=== PATIENT | male | born 2005 | race Caucasian/White ===

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

== ENCOUNTER 2023-04-18 08:04 | Emergency (ER) | payer OTHER, SELFPAY ==
[2023-04-18 08:19] VITALS: BP 135/70; PULSE 95; RESP 18; TEMP 36.5; O2SAT 98
--- NOTE | 2023-04-18 08:35 | ED.URI ---
HPI - URI/Sore Throat General Chief Complaint: Upper Respiratory Infection Stated Complaint: bilateral ear pain,sorethroat Time Seen by Provider: 04/18/23 08:25 Source: patient and RN notes reviewed Mode of arrival: ambulatory Limitations: no limitations History of Present Illness HPI Narrative: Presents today with a 3 day history of sore throat that is worse with swallowing, nasal congestion, bilateral ear pain, and headache. Currently rates pain 5/10 and has been taking ibuprofen with mild relief. 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 Related Data Home Medications Medication Instructions Recorded Confirmed No Home Medications 04/18/23 04/18/23 Allergies Allergy/AdvReac Type Severity Reaction Status Date / Time unknown eye drop Allergy Unknown Uncoded 07/01/22 07:36 Review of Systems Review of Systems: CONSTITUTIONAL: Denies body aches, fever, chills, or sweats. EYES: Denies visual changes, redness, or discharge. ENT: Denies rhinorrhea.+ congestion, sore throat, ear pain CARDIOVASCULAR: Denies chest pain, palpitations, or edema. RESPIRATORY: Denies cough or dyspnea. GASTROINTESTINAL: Denies abdominal pain, nausea, vomiting, or diarrhea. GENITOURINARY: Denies dysuria or hematuria. SKIN: Denies rash, itching, or wounds. MUSCULOSKELETAL: Denies back pain, joint pain, or myalgia. NEUROLOGIC: Denies numbness, tingling, or weakness.+ headache PSYCH: Denies depression or anxiety. [facility] Past Medical History Medical History ADHD Anxiety Depression Hx of migraines Social History Social History Social History: Caffeine-daily soda Smoking status: Never smoker Tobacco type: e-cigarettes/vaping Additional smoking assessment comments: VAPING 3 MONTHS Alcohol intake: never Substance use: never Living arrangements: with family Gender identity (if verbalized by the patient): Male Sexual Orientation (if Verbalized by the Patient): Straight or Heterosexual Comments At time of signature, I have reviewed and agree with nursing past medical, surgical, social and family history unless otherwise noted. Please see nursing chart for further information. There is no relevant family history pertinent to the presenting complaint Exam Narrative: GENERAL: Well-appearing, well-nourished, and in no acute distress. HEAD: Normocephalic, atraumatic. EYES: EOMI. No redness or drainage. Conjunctivae normal. ENT: Mucous membranes pink and moist. Nares congested. No rhinorrhea. TMs normal bilaterally. Throat erythematous without edema or exudate. Small amount of postnasal drainage noted. Uvula midline. NECK: Normal AROM. Supple. No lymphadenopathy. CHEST: No respiratory distress. Clear to auscultation. HEART: Regular rate and rhythm. No murmur appreciated. EXTREMITIES: Normal range of motion. No edema. SKIN: Warm, dry, no rash. Capillary refill normal. Normal skin turgor. NEURO: No focal deficits. Alert and oriented x3. Gait steady. PSYCH: Normal affect. No signs of depression or anxiety. Course Course Level of Care: Express Care Visit Vital Signs Vital signs: Vital Signs Temperature 97.7 F 04/18/23 08:19 Pulse Rate 95 04/18/23 08:19 Respiratory Rate 18 04/18/23 08:19 Blood Pressure 135/70 04/18/23 08:19 Pulse Oximetry 98 04/18/23 08:19 Oxygen Delivery Room Air 04/18/23 08:19 Temperature 97.7 F 04/18/23 08:19 Pulse Rate 95 04/18/23 08:19 Respiratory Rate 18 04/18/23 08:19 Blood Pressure 135/70 04/18/23 08:19 Pulse Oximetry 98 04/18/23 08:19 Oxygen Delivery Room Air 04/18/23 08:19 Reviewed. Pt has been instructed to follow up with his PCP regarding his elevated blood pressure today. MDM - URI/Sore Throat MDM Narrative Medical decision making narrative: Rapid strep negative. Culture pend
== END 2023-04-18 08:48 | disposition home or self-care (01) ==
PROVIDERS: Emergency Provider Nurse Practitioner
DX: J06.9 Acute upper respiratory infection, unspecified (principal); F17.290 Nicotine dependence, other tobacco product, uncomplicated
CPT/HCPCS: 87081; 87880; 99213; G0463

== ENCOUNTER 2023-07-28 21:29 | Emergency (ER) | payer OTHER, SELFPAY | END 2023-07-28 21:30 | disposition left against medical advice (07) | DX: Z53.21 Procedure and treatment not carried out due to patient leaving prior to being seen by health care provider (principal) | CPT/HCPCS: 99199 ==

== ENCOUNTER 2024-08-23 14:29 | Outpatient (CLI) | payer OTHER, MEDICAID, SELFPAY ==
--- NOTE | 2024-08-23 14:36 | ECG_ITS ---
Test Date: 2024-08-23 14:47:10 Measurements Intervals [place] Rate: 72 P: 21 HI: 123 QRS: 89 QRSD: 92 T: 45 QT: 384 QTc: 420 Interpretive Statements SINUS RHYTHM INCOMPLETE RIGHT BUNDLE BRANCH BLOCK No previous ECG available for comparison Electronically Signed On 08-24-2024 09:37:14 CDT by Annamaria Dewitt M.D.
--- NOTE | 2024-08-26 14:29 | WPDHOLTEREM ---
Holter/Event Monitor Holter/Event Monitor Date of procedure: 08/23/24 Holter/Event Procedure: 24 Hr Holter Monitor Indications: Palpitations Conclusion: 1. 24 hour holter monitor on 08/23/24. 2. Underlying rhythm is sinus rhythm. HR range 30-145 bpm; average HR 74 bpm. HR at 30 bpm was at 03:56. HR at 145 bpm was at 22:19. 3. There are 33 premature supraventricular complexes and 7 supraventricular couplets. No supraventricular tachycardia. 4. There is 1 premature ventricular complex. No ventricular tachycardia. 5. No sinoatrial or atrioventricular blocks. The longest pause is 2.1 seconds at 04:32. 6. Patient reports symptoms of dizziness, lightheadedness, chest pain, sob which demonstrate sinus rhythm, HR range 59-103 bpm.
== END 2024-08-23 14:30 | disposition home or self-care (01) ==
PROVIDERS: PCP Nurse Practitioner Family; Visit Provider Nurse Practitioner Family
DX: I45.10 Unspecified right bundle-branch block (principal)
CPT/HCPCS: 93005; 93225; 93226

== ENCOUNTER 2025-02-09 09:27 | Emergency (ER) | payer OTHER, SELFPAY ==
--- NOTE | 2025-02-09 09:37 | ED.URI ---
HPI - URI/Sore Throat General Chief Complaint: Upper Respiratory Infection Stated Complaint: sore throat Time Seen by Provider: 02/09/25 09:32 Source: patient Mode of arrival: ambulatory Limitations: no limitations History of Present Illness HPI Narrative: Miguel is a 19-year-old male patient presenting to the clinic today with complaints a sore throat x2 days. He reports he was at work and the nurse looked is throat told him he needed to come in and be evaluated. He denies any fevers, chills, body aches, or any other URI symptoms. Related Data Allergies Allergy/AdvReac Type Severity Reaction Status Date / Time Chlorhexidine Allergy Mild hives Uncoded 09/30/24 13:03 unknown eye drop Allergy Unknown Uncoded 09/30/24 13:03 Review of Systems Review of Systems: Pertinent positives per HPI. Patient denies any fever, chills, rash, headache, visual changes, dizziness, cough, shortness of breath, chest pain, palpitations, nausea, vomiting, diarrhea, constipation, abdominal pain, or any urinary issues. [facility] Past Medical History Medical History Sleep disturbance, unspecified Hypersomnia Chest pain Migraines Asthma Post-operative pain Hx of migraines ADHD Depression Anxiety Nasal obstruction Hypertrophy of both inferior nasal turbinates Nasal septal deviation Surgical History Surgical History H/O nasal septoplasty 2021 H/O eye surgery 2004 & 2006 Family History Family History Father Alcoholism Mother Alcoholism Diabetes mellitus Depression Sibling Depression Grandparent Heart disease Grandparent Carcinoma of colon Social History Social History Social History: Caffeine-daily soda Smoking status: Never smoker Tobacco type: e-cigarettes/vaping Additional smoking assessment comments: VAPING 3 MONTHS Alcohol intake: never Substance use: never Living arrangements: with family Gender identity (if verbalized by the patient): Male Sexual Orientation (if Verbalized by the Patient): Straight or Heterosexual Comments At the time of my signature, I reviewed and agree with the nursing past medical, surgical, social, and family history. There is no relevant family history pertinent to the patient complaint. Exam Narrative: General: Well-developed, well nourished, in no apparent distress Head: Normocephalic, atraumatic Eyes: Pupils equally round and reactive to light bilaterally, EOM intact, sclera and conjunctive clear, no discharge, lids normal Ears: TMs intact and clear, ear canals clear, no drainage, grossly hearing normal. Nose: Nares patent, no discharge, no inflammation, no sinus tenderness. Mouth: Oral pharynx red without lesions or masses, good dentition, MMM. Neck: Supple, trachea midline, no enlargement of anterior or posterior cervical nodes, no thyroid masses or goiter palpable. Cardio: Regular rate and rhythm, s1 and s2 normal, no murmur appreciated. Resp: Clear to auscultation bilaterally, no rhonchi, rales, wheezing or rubs Course Course Emergency Course: Portions of this record may have been created with voice recognition software. Level of Care: Express Care Visit Vital Signs Vital signs: Vital Signs Temperature 36.9 C 02/09/25 09:39 Pulse Rate 92 02/09/25 09:39 Respiratory Rate 18 02/09/25 09:39 Blood Pressure 117/75 02/09/25 09:39 Pulse Oximetry 99 02/09/25 09:39 Temperature 36.9 C 02/09/25 09:39 Pulse Rate 92 02/09/25 09:39 Respiratory Rate 18 02/09/25 09:39 Blood Pressure 117/75 02/09/25 09:39 Pulse Oximetry 99 02/09/25 09:39 Vital signs reviewed MDM - URI/Sore Throat MDM Narrative Medical decision making narrative: At the time of visit patient is resting comfortably on the exam table. Patient appears to be nontoxic. Labs: Strep test was performed and was negative in the clinic today. We will send strep for culture Plan: I suspect patient has pharyngitis. Supportive measures were discussed with the patient and they voiced understanding discharge instructions and agrees to treatment plan. Return precautions reviewed Differential Diagnosis Differential diagnosis: Likely upper respiratory infection, otitis media, sinusitis, viral infection, bronchitis, influenza, pharyngitis and other (COVID) Discharge Plan Discharge Clinical Impression: Pharyngitis Qualifiers: Pharyngitis/tonsillitis etiology: unspecified etiology Qualified Code(s): J02.9 - Acute pharyngitis, unspecified Patient Disposition: Home, Self-Care Condition: Stable Instructions: Antibiotic Form, Pharyngitis (ED) Additional Instructions: Strep test was negative in the clinic today. We will send strep for culture. Increase fluids and stay well hydrated Tylenol/motrin for pain/fever Flonase and OTC antihistamines as directed Vicks vapor rub to open sinuses Sinus rinses for congestion Cepacol spray, cough drops, throat lozenges, warm tea with honey/lemon, gargle salt water to soothe throat BRAT diet for diarrhea Clear liquids x 24 hours then advance as tolerated for nausea/vomiting Go to the ED if you develop a worsening in your condition- high fever not controlled by Tylenol or Motrin, dehydration, weakness, lethargy, shortness of breath, or chest pain. Follow up with your PCP in 3-5 days if symptoms persist. Patient Language: Slovak Prescriptions: No Action rizatriptan 5 mg tablet See Rx Instructions PO .COMPLEX Qty: 12 5RF Rx Instructions: take 1 tablet at onset of headache; if no relief, may repeat 1 tablet after at least 2 hrs PO metoprolol succinate 25 mg tablet extended release 24 hr 12.5 mg PO DAILY Qty: 15 5RF Follow-up/Referrals: Remy Rivero MD [Primary Care Provider] - Stand Alone Forms: Work/School Release IP Time of Disposition: 09:52 Quality NIHSS Nursing Documentation ED NIHSS nursing documentation: reviewed/agree
[2025-02-09 09:39] VITALS: BP 117/75; PULSE 92; RESP 18; TEMP 36.9; O2SAT 99
--- OUTSIDE RECORDS SUMMARY | 2025-02-09 09:50 | XMS_ITS | Clinical Summary ---
Author Organization [facility] [employer] Address [address] [place] [address] Care Team Providers Care Borderer Name Role Phone Nancy Hurst MD Primary Care Provider [phone] Source Comments [facility],non-owned Affiliates and Associated Physician Practices is amultiple site organization consisting of ambulatory clinics and hospital sitesin [place], [place], [place] and [place]. This disclosure is being madepursuant to the Care Everywhere program and may not contain all information available regarding this patient. Last updated 18.[facility] Allergies Active Allergy Reactions Criticality Noted Date Comments Atropine Fever,Skin Reactions 12/23/2010 Hives, fever Medications * Be aware that medications may not be up to date on this document. Alwaysverify current medications with the patient. Medication Sig Dispensed Refills Start Date End Date Status amoxicillin-clavulana te (Augmentin) 875-125 MG tabletIndications:Acu te non-recurrent maxillary sinusitis Take 1 (one) tablet by mouth 2 times daily with morning and evening meal 20 tablet 10/14/2022 Active citalopram (CeleXA) 20 MG tablet Take 1 (one) tablet by mouth once daily 30 tablet 11 10/14/2022 Active Active Problems Problem Noted Date Diagnosed Date Chronic nonintractable headache 05/20/2019 Anxiety and depression 08/20/2017 Resolved Problems Problem Noted Date Diagnosed Date Resolved Date Asthma, intermittent 10/13/2013 020 Constipation 06/29/2012 09/06/2015 Overview (08/09/2015): Immunizations Name Administration Dates Next Due Covid Ning primary monoval ent 12+ yr 0.3mL Purple cap 01/29/2021,01/08/2021 DTaP VACCINE IM (6wk-6yrs) 06/22/2008,,04/22/2004,02/18,2003 HEP A PEDS 2 DOSE 04/27/2007,12/15/2005 HEP B VACCINE, PED/ADOL 04/22/2004,02/18,2003,10/17 HIB BOOSTER 05/06/2005, 4,02/19/2004,12/19 Human Papilloma Virus Nineva lent Vaccine 08/08/2020,07/21/2018 INFLUENZA VACCINE 12/15/2005 INFLUENZA VACCINE, QUADR. (F LUZONE; FLULAVAL; FLUARIX; AFLURIA QUADRIVALENT; 6MO+), 0.5 ML (IIV4) 08/30/2021,08/08/2020,07/21/2018 MENINGOCOCCAL ACWY (MCV4P) VAC IM 08/08/2020, MMR 06/22/2008,10/21/2004 PNEUMOCOCCAL CONJ, PEDS 10/21/2004,04/22,02/19/2004,12/19 POLIO IPV 06/22/2008, 4,02/19/2004,12/19 PPD 10/21/2004 TDAP (7yrs+) 03/06/2014 VARICELLA 06/22/2008,05/06/2005 Family History Medical History Relation Name Comments Atrial Fibrillation Maternal Grandmother Relation Name Status Comments Maternal Grandmother Social History Tobacco Use Types Packs/Day Years Used Date Smoking Tobacco: Passive Smo ke Exposure - Never Smoker Smokeless Tobacco: Never Alcohol Use Standard Drinks/Week Comments No 0 (1 standard drink = 0.6 oz pur e alcohol) PHQ-2 Answer Date Recorded PHQ2 TOTAL SCORE 0 08/30/2021 Sex and Gender Information Value Date Recorded Sex Assigned at Not on file Gender Identity Not on file Sexual Orientation Not on file Last Filed Vital Signs Vital Sign Reading Time Taken Comments Blood Pressure 112/73 03/26/2022 12:46 PM CDT Pulse 68 03/26/2022 12:46 PM CDT Temperature 36.6 C (97.9 F) 10/14/2022 10:58 AM OPERATIONS LIAISON Respiratory Rate 20 07/05/2021 11:09 AM CDT Oxygen Saturation 98% 07/05/2021 11:09 AM CDT Inhaled Oxygen Concentration - - Weight 72.8 kg (160 lb 6.4 oz) 10/14/2022 10:58 AM OPERATIONS LIAISON Height 172.1 cm (5' 7.75 ) 08/30/2021 1:31 PM CD T Body Mass Index - - Plan of Treatment Health Maintenance Due Date Last Done Comments HIV SCREENING 2018 MENINGOCOCCAL (Group B) VACC INE SHARED DECISION-MAKING (1 of 2 - Standard) 2019 HEPATITIS C SCREENING 10/12/2021 DTAP/TDAP/TD VACCINES (7 - T d or Tdap) 03/06/2024 03/06/2014, 06/22/2008, 05/06/2005, Additional history exists COVID-19 VACCINE (2023-2 5 season) 2024 01/29/2021, 01/08/2021 DEPRESSION SCREENING 11/09/2024 INFLUENZA VACCINE (Season Ended) 2025 08/30/2021, 08/08/2020, 07/21/2018, Additional history exists ZOSTER VACCINE (1 of 2) 2053 HEPATITIS B VACCINE Completed 04/22/2004, 02/19/2004, 2003, Additional history exists PNEUMOCOCCAL VACCINE Completed 10/21/2004, 04/22/2004, 02/19/2004, Additional history exists HIB VACCINE Completed 05/06/2005, 04/09, 02/19/2004, Additional history exists HPV VACCINE Completed 08/08/2020, 07/21/2018 MENINGOCOCCAL GROUPS A/C/Y/W VACCINE Completed 08/08/2020, 05/07/2015 Goals Goal Patient Goal Type Associated Problems Recent Progress Patient-Stated? Author [facility] Lifestyle: Use safety retraint in car Lifestyle On track( 021 10:48 AM CDT) Diane Mathews, RN Take recommended medication(s) Lifestyle On track( 021 10:50 AM CDT) Perla Moon, HOSPICE COMMUNITY LIAISON-PROFESSOR OF PHYSICAL EDUCATION Care Teams Borderer Relationship Specialty Start Date End Date Nancy Hurst MD PCP - General Pediatrics 12/29/17
--- OUTSIDE RECORDS SUMMARY | 2025-02-09 09:50 | XMS_ITS | Clinical Summary ---
Author Organization [facility] Address [address] [place] [id number] Care Team Providers Care Kiln Pusher Name Role Phone None, Provider MD Primary Care Provider Unavaila ble Allergies Active Allergy Reactions Criticality Noted Date Comments Atropine Rash,Hives Low 12/23/2010 Hives, fever Medications No known medications Social History Tobacco Use Types Packs/Day Years Used Date Smoking Tobacco: Never Smokeless Tobacco: Never Tobacco Cessation:Counseling Given: Not Answered Sex and Gender Information Value Date Recorded Sex Assigned at Not on file Legal Sex Male 5:30 PM CDT Gender Identity Not on file Sexual Orientation Not on file Last Filed Vital Signs Vital Sign Reading Time Taken Comments Blood Pressure 118/54 08/05/2023 2:33 PM CDT Pulse 65 08/05/2023 2:33 PM CDT Temperature 36.7 C (98 F) 08/05/2023 2:33 PM CDT Respiratory Rate 20 08/05/2023 2:33 PM CDT Oxygen Saturation 96% 08/05/2023 2:33 PM CDT Inhaled Oxygen Concentration - - Weight 70.3 kg (155 lb) 08/05/2023 2:33 PM CDT Height 175.3 cm (5' 9 ) 08/05/2023 2:33 PM CDT Body Mass Index 22.89 08/05/2023 2:33 PM CDT Plan of Treatment Health Maintenance Due Date Last Done Comments Annual Physical 2006 Meningococcal B Vaccine (1 of 2 - Standard) 2019 Hepatitis C 2021 DTaP, Tdap and Td Vaccines (7 - Td or Tdap) 03/06/2024 03/06/2014, 06/22/2008, 05/06/2005, Additional history exists COVID-19 Vaccine ( season) 2024 10/01/2021, 01/29/2021, 01/08/2021 Influenza Adult (#1) 2024 08/30/2021, 08/08/2020, 07/21/2018, Additional history exists Hepatitis B Vaccines Completed 04/22/2004, 04/22/2004, 02/19/2004, Additional history exists Pneumococcal Vaccine: Pediatrics (0 to 5 Years) and At-Risk Patients (6 to 64 Years) Aged Out 10/21/2004, 02/19/2004, 2003 No longer eligible based on patient's age to complete this topic HPV Vaccines Completed 08/08/2020, 07/21/2018 Meningococcal Vaccine Completed 08/08/2020, 015 RSV Immunizations Under 20 Months Aged Out No longer eligible based on patient's age to complete this topic Insurance [employer] Care Teams Kiln Pusher Relationship Specialty Start Date End Date None, Provider, PCP - General 06/15/22
--- OUTSIDE RECORDS SUMMARY | 2025-02-09 09:50 | XMS_ITS | Encounter Summary ---
Author Organization [facility] Health Address [address] [place] [address] Care Team Providers Care Higher Level Teaching Assistant Name Role Phone Nancy Hurst MD Unavailable [phone] Nancy Hurst MD Primary Care Provider [phone] Nancy Hurst MD Primary Care Provider [phone] Nancy Hurst MD Unavailable [phone] Arun Frank MD Unavailable [phone] Nancy Hurst MD Unavailable [phone] Encounter Details Date Type Department Care Team (Late st Contact Info) Description 10/10/2012 [facility] Outpatient Visit CG DEFAULT [address] [place] [address] Unknown, Provider Social History Tobacco Use Types Packs/Day Years Used Date Smoking Tobacco: Never Assessed Sex and Gender Information Value Date Recorded Sex Assigned at Not on file Gender Identity Not on file Sexual Orientation Not on file documented as of this encounter Plan of Treatment Not on file documented as of this encounter Visit Diagnoses Not on filedocumented in this encounter Additional Health Concerns Infection Onset Date Last Indicated Resolved Time COVID-19 Under Investigation 09/13/2020 09/13/2020 09/15/2020 1:07 PM GAS CONTROLLER COVID-19 Confirmed 09/13/2020 09/13/2020 0 4:35 AM GAS CONTROLLER COVID-19 Under Investigation 10/14/2022 10/14/2022 10/14/2022 11:40 AM GAS CONTROLLER documented as of this encounter Care Teams Higher Level Teaching Assistant Relationship Specialty Start Date End Date Nancy Hurst MD PCP - Pediatrics 08/24/09 12/24/17 Nancy Hurst MD [address] [address] PCP - General 01/29/10 12/24/17 Nancy Hurst MD PCP - General Pediatrics 12/29/17 Nancy Hurst MD [address] [address] PCP - Attributed-[place] [employer] 06/09/20 01/06/21 [place] [address] [address] PCP - Attributed-[place] [employer] 01/07/21 03/08/21 Nancy Hurst MD [address] [id number] PCP - Attributed-[place] [employer] 03/09/21 06/24/21 documented as of this encounter
[2025-02-09 09:56] LABS: EDSTREPNEGPOS1 Negative (Negative)
== END 2025-02-09 09:56 | disposition home or self-care (01) ==
PROVIDERS: Emergency Provider Nurse Practitioner Family; PCP Family Medicine
DX: J02.9 Acute pharyngitis, unspecified (principal); J45.909 Unspecified asthma, uncomplicated; F90.9 Attention-deficit hyperactivity disorder, unspecified type; F17.290 Nicotine dependence, other tobacco product, uncomplicated
CPT/HCPCS: 87081; 87880; 99213; G0463

== ENCOUNTER 2025-05-25 00:16 | Emergency (ER) | payer SELFPAY ==
--- OUTSIDE RECORDS SUMMARY | 2025-05-25 00:18 | XMS_ITS | Clinical Summary ---
Author Organization [facility] Address [address] [place] [address] Care Team Providers Care Laboratory Machinist Name Role Phone None, Provider MD Primary [...] 2:33 PM CDT Height 175.3 cm (5' 9) 08/05/2023 2:33 PM CDT Body Mass Index 22.89 08/05/2023 2:33 PM CDT Plan of Treatment Health Maintenance Due Date Last Done Comments Annual Physical 2006 Meningococcal B Vaccine (1 of 2 - Standard) 2019 Hepatitis C 2021 DTaP, Tdap and Td Vaccines (7 - Td or Tdap) 03/06/2024 03/06/2014, 06/22/2008, 05/06/2005, Additional history exists COVID-19 Vaccine ( season) 2024 10/01/2021, 01/29/2021, 01/08/2021 Hepatitis B Vaccines Completed 04/22/2004, 04/22/2004, 02/19/2004, Additional history exists Pneumococcal Vaccine: Pediatrics (0 to 5 Years) and At-Risk Patients (6 to 49 Years) Aged Out 10/21/2004, 02/19/2004, 2003 No longer eligible based on patient's age to complete this topic HPV Vaccines Completed 08/08/2020, 07/21/2018 Meningococcal Vaccine Completed 08/08/2020, 015 RSV Immunizations Under 20 Months Aged Out No longer eligible based on patient's age to complete this topic Insurance [employer] Care Teams Laboratory Machinist Relationship Specialty Start Date End Date None, Provider, PCP - General 06/15/22
--- OUTSIDE RECORDS SUMMARY | 2025-05-25 00:18 | XMS_ITS | Clinical Summary ---
Author Organization [facility] [employer] Address [address] [place] [address] Care Team Providers Care Rpg Developer Name Role Phone Nancy Hurst MD Primary Care Provider [phone] Source Comments [facility],non-owned Affiliates and Associated Physician Practices is amultiple site organization consisting of ambulatory clinics and hospital sitesin [place], [place], [place] and [place]. This disclosure is being madepursuant to the Care Everywhere program and may not contain all information available regarding this patient. Last updated 18.[facility] Allergies Active Allergy Reactions Criticality Noted Date Comments Atropine Fever,Skin Reactions 12/23/2010 Hives, fever Medications * Be aware that medications may not be up to date on this document. Alwaysverify current medications with the patient. 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 Gender Identity Not on file Sexual Orientation Not on file Last Filed Vital Signs Vital Sign Reading Time Taken Comments Blood Pressure 112/73 03/26/2022 12:46 PM CDT Pulse 68 03/26/2022 12:46 PM CDT Temperature 36.6 C (97.9 F) 10/14/2022 10:58 AM AIR CARGO GROUND CREW SUPERVISOR Respiratory Rate 20 07/05/2021 11:09 AM CDT Oxygen Saturation 98% 07/05/2021 11:09 AM CDT Inhaled Oxygen Concentration - - Weight 72.8 kg (160 lb 6.4 oz) 10/14/2022 10:58 AM AIR CARGO GROUND CREW SUPERVISOR Height 172.1 cm (5' 7.75) 08/30/2021 1:31 PM CD T Body Mass Index - - Plan of Treatment Health Maintenance Due Date Last Done Comments HIV SCREENING 2018 MENINGOCOCCAL (Group B) VACC INE SHARED DECISION-MAKING (1 of 2 - Standard) 2019 HEPATITIS C SCREENING 10/12/2021 DTAP/TDAP/TD VACCINES (7 - T d or Tdap) 03/06/2024 03/06/2014, 06/22/2008, 05/06/2005, Additional history exists COVID-19 VACCINE (3 - 2023-2 5 season) 2024 01/29/2021, 01/08/2021 DEPRESSION SCREENING 11/09/2024 INFLUENZA VACCINE (#1) 2025 , 08/08/2020, 07/21/2018, Additional history exists ZOSTER VACCINE [...] safety retraint in car Lifestyle On track( 10:48 AM CDT) No Diane Bailey, RN Take recommended medication(s) Lifestyle On track( 10:50 AM CDT) No Perla Valente, [facility] Insurance [employer] * Guarantor: MIGUEL HARPER JR Account Type Relation to Patient Date of Phone Billing Address Personal/Family [address] [place] [address] Care Teams Rpg Developer Relationship Specialty Start Date End Date Nancy Hurst MD PCP - General Pediatrics 12/29/17
--- OUTSIDE RECORDS SUMMARY | 2025-05-25 00:18 | XMS_ITS | Encounter Summary ---
Author Organization [facility] Health Address [address] [place] [place] [address] Care Team Providers Care Business Analyst Intern Name Role Phone Nancy Hurst MD Unavailable [phone] Nancy Hurst MD Primary Care Provider [phone] Nancy Hurst MD Primary Care Provider [phone] Nancy Hurst MD Unavailable [phone] Arun Frank MD Unavailable [phone] Nancy Hurst MD Unavailable [phone] Encounter Details Date Type Department Care Team (Late st Contact Info) Description 10/10/2012 [facility] Outpatient Visit CG DEFAULT [address] [place] [address] Unknown, Provider Social History Tobacco Use Types Packs/Day Years Used Date Smoking Tobacco: Never Assessed Sex and Gender Information Value Date Recorded Sex Assigned at Not on file Legal Sex Male 6:45 AM MD ALLERGY IMMUNOLOGY Gender Identity Not on file Sexual Orientation Not on file documented as of this encounter Plan of Treatment Not on file documented as of this encounter Visit Diagnoses Not on filedocumented in this encounter Additional Health Concerns Infection Onset Date Last Indicated Resolved Time COVID-19 Under Investigation 09/13/2020 09/13/2020 09/15/2020 1:07 PM MD ALLERGY IMMUNOLOGY COVID-19 Confirmed 09/13/2020 09/13/2020 0 4:35 AM MD ALLERGY IMMUNOLOGY COVID-19 Under Investigation 10/14/2022 10/14/2022 10/14/2022 11:40 AM MD ALLERGY IMMUNOLOGY documented as of this encounter Care Teams Business Analyst Intern Relationship Specialty Start Date End Date Nancy Hurst MD PCP - Pediatrics 08/24/09 12/24/17 Nancy Hurst MD [address] [id number] PCP - General 01/29/10 12/24/17 Nancy Hurst MD PCP - General Pediatrics 12/29/17 Nancy Hurst MD [address] [address] PCP - Attributed-[place] [employer] 06/09/20 01/06/21 [place] [address] [address] PCP - Attributed-[place] [employer] 01/07/21 03/08/21 Nancy Hurst MD [address] [id number] PCP - Attributed-[place] [employer] 03/09/21 06/24/21 documented as of this encounter
--- OUTSIDE RECORDS SUMMARY | 2025-05-25 00:49 | XMS_ITS | Clinical Summary ---
Author Organization [facility] [employer] Address [address] [place] [address] Care Team Providers Care Learning Officer Name Role Phone Nancy Hurst MD Primary Care Provider [phone] Source Comments [facility],non-owned Affiliates and Associated Physician Practices is amultiple site organization consisting of ambulatory clinics and hospital sitesin [place], [place], [place] and [place]. This disclosure is being madepursuant to the Care Everywhere program and may not contain all information available regarding this patient. 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 Gender Identity Not on file Sexual Orientation Not on file Last Filed Vital Signs Vital Sign Reading Time Taken Comments Blood Pressure 112/73 03/26/2022 12:46 PM CDT Pulse 68 03/26/2022 12:46 PM CDT Temperature 36.6 C (97.9 F) 10/14/2022 10:58 AM SIGNAL WORKER Respiratory Rate 20 07/05/2021 11:09 AM CDT Oxygen Saturation 98% 07/05/2021 11:09 AM CDT Inhaled Oxygen Concentration - - Weight 72.8 kg (160 lb 6.4 oz) 10/14/2022 10:58 AM SIGNAL WORKER Height 172.1 cm (5' 7.75) 08/30/2021 1:31 [...] track( 10:50 AM CDT) No Perla Valente, [facility] Insurance [employer] * Guarantor: MIGUEL HARPER JR Account Type Relation to Patient Date of Phone Billing Address Personal/Family [address] [facility] [place] [address] Care Teams Learning Officer Relationship Specialty Start Date End Date Nancy Hurst MD PCP - General Pediatrics 12/29/17
--- OUTSIDE RECORDS SUMMARY | 2025-05-25 00:49 | XMS_ITS | Encounter Summary ---
Author Organization [facility] Health Address [address] [place] [address] Care Team Providers Care Carpenter Name Role Phone Nancy Hurst MD Unavailable [phone] Nancy Hurst MD Primary Care Provider [phone] Nancy Hurst MD Primary Care Provider [phone] Nancy Hurst MD Unavailable [phone] Arun Frank MD Unavailable [phone] Nancy Hurst MD Unavailable [phone] Encounter Details Date Type Department Care Team (Late st Contact Info) Description 10/10/2012 [facility] Outpatient Visit CG DEFAULT [address] [place] [address] Unknown, Provider Social History Tobacco Use Types Packs/Day Years Used Date Smoking Tobacco: Never Assessed Sex and Gender Information Value Date Recorded Sex Assigned at Not on file 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 Gender Identity Not on file Sexual Orientation Not on file documented as of this encounter Plan of Treatment Not on file documented as of this encounter Visit Diagnoses Not on filedocumented in this encounter Additional Health Concerns Infection Onset Date Last Indicated Resolved Time COVID-19 Under Investigation 09/13/2020 09/13/2020 09/15/2020 1:07 PM PRIMING MACHINE OPERATOR COVID-19 Confirmed 09/13/2020 09/13/2020 0 4:35 AM PRIMING MACHINE OPERATOR COVID-19 Under Investigation 10/14/2022 10/14/2022 10/14/2022 11:40 AM PRIMING MACHINE OPERATOR documented as of this encounter Care Teams Carpenter Relationship Specialty Start Date End Date Nancy Hurst MD PCP - Pediatrics 08/24/09 12/24/17 Nancy Hurst MD [address] [phone] PCP - General 01/29/10 12/24/17 Nancy Hurst MD PCP - General Pediatrics 12/29/17 Nancy Hurst MD [address] [address] PCP - Attributed-[place] [employer] 06/09/20 01/06/21 [place] [address] [address] PCP - Attributed-[place] [employer] 01/07/21 03/08/21 Nancy Hurst MD [address] [phone] PCP - Attributed-[place] [employer] 03/09/21 06/24/21 documented as of this encounter
--- OUTSIDE RECORDS SUMMARY | 2025-05-25 00:49 | XMS_ITS | Clinical Summary ---
Author Organization [facility] Address [address] [place] [address] Care Team Providers Care Rug Hooker Hand Name Role Phone None, Provider MD Primary [...] [employer] [employer] Care Teams Rug Hooker Hand Relationship Specialty Start Date End Date None, Provider, PCP - General 06/15/22
== END 2025-05-25 00:54 | disposition left against medical advice (07) ==
LOC: ANHED 00:48
PROVIDERS: PCP Family Medicine
DX: Z53.21 Procedure and treatment not carried out due to patient leaving prior to being seen by health care provider (principal)
CPT/HCPCS: 99199

== ENCOUNTER 2025-05-31 13:21 | Outpatient (CLI) | payer OTHER, SELFPAY ==
--- NOTE | ~2025-05-31 | CT_ITS ---
CLINICAL INDICATION: Elevated urine levels of drugs and medications COMPARISON: None. TECHNIQUE: Multiple contiguous axial images of the abdomen and pelvis were performed following the ad ministration of with 100 mL Omnipaque-350 intravenous contrast The dose-length product (DLP) was 657.82 mGy-cm. Automated exposure control and iterative reconstruction technique were employed. FINDINGS/OBSERVATIONS: Visualized lower thorax: The bilateral lung bases are clear. The heart is of normal size, without pericardial effusion. Liver: The liver demonstrates homogeneous enhancement and is not enlarged. Gallbladder and biliary system: The gallbladder is only minimally distended, and otherwise unremarkable. Pancreas: The pancreas enhances homogeneously without ductal dilatation. Spleen: The spleen enhances homogeneously and is not enlarged. Kidneys, ureters and bladder: The bilateral kidneys enhance symmetrically without hydronephrosis or renal calculi. The bilateral kidneys excrete symmetrically, without filling defect identified within the bilateral c ollecting systems or bilateral ureters. The bladder distends normally, without filling defect. Adrenal glands: Unremarkable. Gastrointestinal tract: Fecal stasis within the colon. Appendix: The appendix is not definitively visualized. However, no pericecal inflammatory change is identified suggest the presence of acute appendicitis. Vasculature: Unremarkable. Lymph nodes: No pathologically enlarged or morphologically suspicious lymph nodes within the retroperitoneum or at the root of the mesentery. Pelvic structures: The bladder is distended with intravenous contrast, as detailed above, and otherwise unremarkable. The prostate gland is not enlarged. Body wall and musculoskeletal: No significant degenerative disease within the lower thoracic or lumbosacral spine. No inguinal hernias are appreciated. IMPRESSION: Unremarkable CT urogram, as detailed above. Reviewed, dictated and finalized at location A.
--- OUTSIDE RECORDS SUMMARY | 2025-05-31 13:27 | XMS_ITS | Clinical Summary ---
Author Organization [facility] [employer] Address [address] [place] [address] Care Team Providers Care History Teacher Name Role Phone Nancy Hurst MD Primary Care Provider [phone] Source Comments [facility],non-owned Affiliates and Associated Physician Practices is amultiple site organization consisting of ambulatory clinics and hospital sitesin [place], [place], [place] and [place]. This disclosure is being madepursuant to the Care Everywhere program and may not contain all information available regarding this patient. 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 Gender Identity Not on file Sexual Orientation Not on file Last Filed Vital Signs Vital Sign Reading Time Taken Comments Blood Pressure 112/73 03/26/2022 12:46 PM CDT Pulse 68 03/26/2022 12:46 PM CDT Temperature 36.6 C (97.9 F) 10/14/2022 10:58 AM OXYGEN PLANT OPERATOR Respiratory Rate 20 07/05/2021 11:09 AM CDT Oxygen Saturation 98% 07/05/2021 11:09 AM CDT Inhaled Oxygen Concentration - - Weight 72.8 kg (160 lb 6.4 oz) 10/14/2022 10:58 AM OXYGEN PLANT OPERATOR Height 172.1 cm (5' 7.75) 08/30/2021 1:31 [...] track( 10:50 AM CDT) No Perla Valente, [facility] Insurance [employer] * Guarantor: MIGUEL HARPER JR Account Type Relation to Patient Date of Phone Billing Address Personal/Family [address] [place] [address] Care Teams History Teacher Relationship Specialty Start Date End Date Nancy Hurst MD PCP - General Pediatrics 12/29/17
--- OUTSIDE RECORDS SUMMARY | 2025-05-31 13:27 | XMS_ITS | Encounter Summary ---
Author Organization [facility] Health Address [address] [place] [place] [address] Care Team Providers Care Tribal Judge Name Role Phone Nancy Hurst MD Unavailable [phone] Nancy Hurst MD Primary Care Provider [phone] Nancy Hurst MD Primary Care Provider [phone] Nancy Hurst MD Unavailable [phone] Arun Frank MD Unavailable [phone] Nancy Hurst MD Unavailable [phone] Encounter Details Date Type Department Care Team (Late st Contact Info) Description 10/10/[address] 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 Gender Identity Not on file Sexual Orientation Not on file documented as of this encounter Plan of Treatment Not on file documented as of this encounter Visit Diagnoses Not on filedocumented in this encounter Additional Health Concerns Infection Onset Date Last Indicated Resolved Time COVID-19 Under Investigation 09/13/2020 09/13/2020 09/15/2020 1:07 PM BOW MAKER PRODUCTION COVID-19 Confirmed 09/13/2020 09/13/2020 0 4:35 AM BOW MAKER PRODUCTION COVID-19 Under Investigation 10/14/2022 10/14/2022 10/14/2022 11:40 AM BOW MAKER PRODUCTION documented as of this encounter Care Teams Tribal Judge Relationship Specialty Start Date End Date Nancy Hurst MD PCP - Pediatrics 08/24/09 12/24/17 Nancy Hurst MD [address] [phone] PCP - General 01/29/10 12/24/17 Nancy Hurst MD PCP - General Pediatrics 12/29/17 Nancy Hurst MD [address] [address] PCP - Attributed-[place] [employer] 06/09/20 01/06/21 [place] [address] [address] PCP - Attributed-[place] [employer] 01/07/21 03/08/21 Nancy Hurst MD [address] [address] PCP - Attributed-[place] [employer] 03/09/21 06/24/21 documented as of this encounter
--- OUTSIDE RECORDS SUMMARY | 2025-05-31 13:27 | XMS_ITS | Clinical Summary ---
Author Organization [facility] Address [address] [place] [address] Care Team Providers Care Donor Floor Technician Name Role Phone None, Provider MD Primary Care Provider Unavaila ble Allergies Active Allergy Reactions Criticality Noted Date Comments Atropine Rash,Hives Low 12/23/2010 Hives, fever Chlorhexidine Rash Low 05/25/2025 Medications No known medications Encounters Date Type Department Care Team Description 05/25/2025 1:16 AM CDT - 05/25/2025 4:[address] [facility] [place] [address] Juan Manuel Guo MD,PHD Hypertension; Headache Discharge Disposition: Home or Self Care (Routine Discharge) 05/25/2025 Travel from Last 3 Months Social History Tobacco Use Types Packs/Day Years Used Date Smoking Tobacco: Never Smokeless Tobacco: Never Tobacco Cessation:Counseling Given: Not Answered Alcohol Use Standard Drinks/Week Comments Not Currently 0 (1 standard drink = 0.6 oz pur e alcohol) Sex and Gender Information Value Date Recorded Sex Assigned at Not on file Legal Sex Male 5:30 PM CDT Gender Identity Not on file Sexual Orientation Not on file Last Filed Vital Signs Vital Sign Reading Time Taken Comments Blood Pressure 115/57 05/25/2025 3:40 AM CDT Pulse 71 05/25/2025 1:33 AM CDT Temperature 37.2 C (98.9 F) 05/25/2025 12:57 AM CDT Respiratory Rate 18 05/25/2025 12:57 AM CDT Oxygen Saturation 98% 05/25/2025 3:40 AM CDT Inhaled Oxygen Concentration - - Weight 66.9 kg (147 lb 7.8 oz) 05/25/2025 12:57 AM CDT Height 177.8 cm (5' 10) 05/25/2025 12:57 AM CDT Body Mass Index 21.16 05/25/2025 12:57 AM CDT Plan of Treatment Health Maintenance Due [...] on patient's age to complete this topic Procedures Procedure Name Priority Date/Time Associated Diagnosis Comments METANEPHRINES URINE RANDOM STAT 05/25/2025 2:[address] HEAD WO CON STAT 05/25/2025 2:02 AM CDT ECG 12-LEAD STAT 05/25/2025 1:53 AM CDT THYROXINE, FREE (FT4) Routine 05/25/2025 1:27 AM CDT THYROID STIM HORMONE TSH Routine 05/25/2025 1:27 AM CDT MAGNESIUM Routine 05/25/2025 1:27 AM CDT TROPONIN, QUANT STAT 05/25/2025 1:27 AM CDT COMPREHENSIVE METABOLIC PANEL STAT 05/25/2025 1:27 AM CDT CBC W/DIFF AUTOMATED STAT 05/25/2025 1:27 AM CDT from Last 3 Months Results * (ABNORMAL) METANEPHRINES URINE RANDOM (05/25/2025 2:19 AM CDT) Pathologist [facility] METANEPHRINE TOTAL (U) 73 39 - 146 mcg/g cr 05/30/2025 7:56 PM CDT [employer] MARIANNA GARCIA Comment: This test was developed and its analytical performance characteristics have been determined by [facility], [place]. It has not been cleared or approved by the U.S. Food and Drug Administration. This assay has been validated pursuant to the CLIA regulations and is used for clinical purposes. NORMETANEPHRINE (U) 24 HRS 1,536(H) 91 - 365 mcg/g cr 05/30/2025 7:56 PM CDT [employer] MARIANNA GARCIA Comment: This test was developed and its analytical performance characteristics have been determined by [facility], [place]. It has not been cleared or approved by the U.S. Food and Drug Administration. This assay has been validated pursuant to the CLIA regulations and is used for clinical purposes. METANEPHRINES TOTAL (U) 1,609(H) 156 - 442 mcg/g cr 05/30/2025 7:56 PM CDT [employer] MARIANNA GARCIA Comment: A four fold elevation of urinary normetanephrines is extremely likely to be due to a tumor, while a four fold elevation of urinary metanephrines is highly suggestive, but not diagnostic of the tumor. Measurement of plasma Metanephrines and Chromogranin A is recommended for confirmation. CREATININE (U) 59 20 - 320 mg/dL 05/30/2025 7:56 PM CDT [employer]-CHANTI LLY Comment: Test Performed by [employer], [facility], [address] [place], [place] Elfego Abad M.D., Ph.D., Director of Laboratories , [place] [id number] URINE SPECIMEN / Unknown 05/25/2025 2:19 AM CDT Juan Manuel Guo MD,PHD URINE ORDERABLES Final Res ult [facility] [address] [place] [address], [place] [phone] * CT HEAD WO CON (05/25/2025 2:02 AM CDT) Anatomical Region Laterality Modality Head Computed Tomogra phy 05/25/2025 2:03 AM CDT Impressions 05/25/2025 2:04 AM CDT IMPRESSION: No CT evidence of an acute intracranial abnormality. Referred By: Interpreted By: Raúl Nolan MD, 05/25/2025 2:03 AM Narrative 05/25/2025 2:04 AM CDT [address] [address] EXAMINATION: CT HEAD WO CON, 05/25/2025 2:03 AM TECHNIQUE: Computed tomographic images of the head were obtained without intravenous contrast. Additional coronal and sagittal reformatted images were generated. A dose lowering technique was used for this procedure, which may include, but is not limited to, dose reduction technique, automated exposure control, the use of iterative reconstruction, and ALARA (As Low As Reasonably Achievable) / Image Gently techniques. HISTORY: Hypertension, headache COMPARISON: None available FINDINGS: No acute intracranial hemorrhage. No extra-axial fluid collection. Preserved prater-white matter differentiation. The ventricles are normal in size. The basal cisterns appear normal. Paranasal sinuses and mastoid air cells are well-aerated. No acute fracture Procedure Note Raúl Nolan MD - 05/25/[address] [address] EXAMINATION: CT HEAD WO CON, 05/25/2025 2:03 AM TECHNIQUE: Computed tomographic images of the head were obtained withoutintravenous contrast. Additional coronal and sagittal reformatted imageswere generated. A dose lowering technique was used for this procedure,which may include, but is not limited to, dose reduction technique,automated exposure control, the use of iterative reconstruction, and ALARA(As Low As Reasonably Achievable) / Image Gently techniques. HISTORY: Hypertension, headache COMPARISON: None available FINDINGS: No acute intracranial hemorrhage. No extra-axial fluidcollection. Preserved prater-white matter differentiation. The ventriclesare normal in size. The basal cisterns appear normal. Paranasal sinusesand mastoid air cells are well-aerated. No acute fracture IMPRESSION: No CT evidence of an acute intracranial abnormality. 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: : 2005 Requested By: JUAN MANUEL GUO Order Number: [id number] Reading MD: Measurements Intervals [place] Rate: 81 P: 34 PA: 125 QRS: 77 QRSD: 96 T: 46 QT: 368 QTc: 428 Interpretive Statements SINUS RHYTHM NONSPECIFIC ST ELEVATION [0.05+ mV ST ELEVATION] No previous ECG available for comparison Other ischemic changes, not STEMI Preliminary EKG Interpretation by Juan Manuel Guo MD Procedure Note , Generic Conversion, - 05/25/[address] Test Date: 2025-05-25 Pat Name: MIGUEL HARPER Department: 41 Room: [id number] Gender: Male 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: : 2005 Requested By: JUAN MANUEL GUO Order Number: [id number] Reading MD: Measurements Intervals [place] Rate: 81 P: 34 PA: 125 QRS: 77 QRSD: 96 T: 46 QT: 368 QTc: 428 Interpretive Statements SINUS RHYTHM NONSPECIFIC ST ELEVATION [0.05+ mV ST ELEVATION] No previous ECG available for comparison Other ischemic changes, not STEMI Preliminary EKG Interpretation by Juan Manuel Guo MD us Juan Manuel Guo MD,PHD ECG ORDERABLES Final Resu lt [facility] RAD * (ABNORMAL) COMPREHENSIVE METABOLIC PANEL (05/25/2025 1:27 AM CDT) GLUCOSE 101(H) 70 - 99 MG/DL 05/25/2025 2:01 AM CDT [facility] BUN 13 7 - 18 MG/DL 05/25/2025 2:01 AM CDT [facility] CREATININE S/P/B 0.82 0.7 - 1.3 MG/DL 05/25/2025 2:01 AM CDT [facility] SODIUM S/P/B 138 136 - 145 MMOL/L 05/25/2025 2:01 AM CDT [facility] POTASSIUM S/P/B 3.7 3.5 - 5.1 MMOL/L 05/25/2025 2:01 AM CDT [facility] CHLORIDE S/P/B 106 97 - 115 MMOL/L 05/25/2025 2:01 AM T [facility] CO2 27.5 21 - 32 MMOL/L 05/25/2025 2:01 AM [facility] CALCIUM S/P/B 9.7 8.5 - 10.1 MG/DL 05/25/2025 2:01 AM [facility] BILIRUBIN TOTAL S/P/B 1.0 0.2 - 1.2 MG/DL 05/25/2025 2:01 AM [facility] Comment: THIS ASSAY IS NOT RECOMMENDED FOR PATIENTS UNDERGOING TREATMENT WITH ELTROMBOPAG DUE TO THE POTENTIAL FOR FALSELY ELEVATED RESULTS. TOTAL PROTEIN S/P/B 7.7 6.4 - 8.2 G/DL 05/25/2025 2:01 AM [facility] ALBUMIN S/P/B 4.1 3.4 - 5.0 G/DL 05/25/2025 2:01 AM [facility] AST 14(L) 15 - 37 U/L 05/25/2025 2:01 AM [facility] ALT 27 16 - 60 U/L 05/25/2025 2:01 AM [facility] ALKALINE PHOSPHATASE S/P/B 129 50 - 136 U/L 05/25/2025 2:01 AM [facility] ANION GAP 4.5 2 - 10 MMOL/L 05/25/2025 2:01 AM [facility] BUN CREATININE RATIO 15.9 6 - 26 05/25/2025 2:01 AM [facility] A/G RATIO 1.1 1.0 - 2.0 RATIO 05/25/2025 2:01 AM [facility] GFR ESTIMATE >90 >90 ML/MIN/1.7 3 M2 05/25/2025 2:01 AM CDT [facility] Comment: NOTE: eGFR is not calculated for patients <18 years of age or gender unknown. This is an estimated GFR calculation using the new CKD EPI creatinine equation without race and so does not require a correction factor for race. This estimated GFR should not be used for calculating drug doses. 05/25/2025 1:27 AM CDT Germán Cortes NP LABORATORY Final Result [facility] [address] [place] [address], * (ABNORMAL) CBC W/DIFF AUTOMATED (05/25/2025 1:27 AM CDT) WBC 10.29 4.5 - 11.0 x10'3/uL 05/25/2025 2:07 AM CDT [facility] RBC 5.16 4.70 - 6.10 x10'6/uL 05/25/2025 2:07 AM CDT [facility] HGB 15.3 14.0 - 18.0 G/DL 05/25/2025 2:07 AM CDT [facility] HCT 42.4(L) 43.0 - 54.0 % 05/25/2025 2:07 AM CDT [facility] MCV 82.2 80.0 - 94.0 FL 05/25/2025 2:07 AM CDT [facility] MCH 29.7 27.0 - 31.0 PG 05/25/2025 2:07 AM CDT [facility] MCHC 36.1(H) 32.0 - 36.0 G/DL 05/25/2025 2:07 AM CDT [facility] RDW 12.1 11.5 - 14.5 % 05/25/2025 2:07 AM CDT [facility] PLT 302 130 - 400 x10'3/uL 05/25/2025 2:07 AM CDT [facility] MPV 11.2 9.3 - 12.2 FL 05/25/2025 2:07 AM CDT [facility] DIFFERENTIAL TYPE AUTOMATED DIFFERENTIAL 05/25/2025 2:07 AM CDT [facility] NEUTROPHILS % 47.0 % 05/25/2025 2:07 AM CDT [facility] LYMPHOCYTES % 41.0 % 05/25/2025 2:07 AM CDT [facility] MONOCYTES % 7.8 % 05/25/2025 2:07 AM CDT [facility] EOSINOPHILS 3.1 % 05/25/2025 2:07 AM CDT [facility] BASOPHILS 0.9 % 05/25/2025 2:07 AM CDT [facility] IMMATURE GRANS % 0.2 % 05/25/20 2:07 AM CDT [facility] ABS. NEUTROPHILS 4.84 1.80 - 7.70 x10'3/uL 05/25/2025 2:07 AM CDT [facility] ABS. LYMPHOCYTES 4.22 1.00 - 4.80 x10'3/uL 05/25/2025 2:07 AM CDT [facility] ABS. MONOCYTES 0.80 0.30 - 0.82 x10'3/uL 05/25/2025 2:07 AM CDT [facility] ABS. EOSINOPHILS 0.32 0.04 - 0.54 x10'3/uL 05/25/2025 2:07 AM CDT [facility] ABS. BASOPHILS 0.09(H) 0.01 - 0.08 x10'3/uL 05/25/2025 2:07 AM CDT [facility] ABS. IMMATURE GRANULOCYTES 0.02 0.00 - 0.49 x10'3/uL 05/25/2025 2:07 AM CDT [facility] 05/25/2025 1:27 AM CDT Germán Cortes DIRECTOR INTERNAL COMMUNICATIONS LABORATORY Final Result Performing Organization Address City/[facility] Co de Phone Number [facility] [address] [place] [address], * THYROXINE, FREE (FT4) (05/25/2025 1:27 AM CDT) FREE T4 1.09 0.76 - 1.46 NG/DL 05/25/2025 3:00 AM CDT [facility] 05/25/2025 1:27 AM CDT Juan Manuel Guo MD,PHD LABORATORY Final Resu lt Performing Organization Address [facility] Co de Phone Number [facility] [address] [place] [address], * TROPONIN, QUANT (05/25/2025 1:27 AM CDT) TROPONIN I HIGH SENSITIVITY <3 <79 ng/L 05/25/2025 2:01 AM CDT [facility] Comment: HIGH DOSES OF BIOTIN, TROPONIN-SPECIFIC AUTOANTIBODIES, AND ANTIBODY THERAPY CONTAINING HAMA MAY INTERFERE WITH THIS TEST RESULT. CORRELATION TO CLINICAL HISTORY AND PRESENTATION RECOMMENDED. 05/25/2025 1:27 AM CDT Germán Cortes NP LABORATORY Final Result Performing Organization Address City/[facility]/ZIP Co de Phone Number [facility] [address] [place] [address], * (ABNORMAL) THYROID STIM HORMONE TSH (05/25/2025 1:27 AM CDT) TSH 4.890(H) 0.358 - 3.74 uIU/ML 05/25/2025 3:00 AM CDT [facility] Comment: HIGH DOSES OF BIOTIN MAY INTERFERE WITH THIS TEST RESULT. CORRELATION TO CLINICAL HISTORY AND PRESENTATION RECOMMENDED. 05/25/2025 1:27 AM CDT Juan Manuel Guo MD,PHD LABORATORY Final Resu lt Performing Organization Address [facility] Co de Phone Number [facility] [address] [place] [address], * MAGNESIUM (05/25/2025 1:27 AM CDT) MAGNESIUM 2.2 1.8 - 2.4 MG/DL 05/25/2025 3:00 AM CDT [facility] 05/25/2025 1:27 AM CDT Juan Manuel Guo MD,PHD LABORATORY Final Resu lt Performing Organization Address City/[facility]/ZIP Co de Phone Number [facility] [address] [place] [address], [place] [phone] from Last 3 Months Insurance [employer] [facility] [facility] GENERIC - COMMERCIAL Care Teams Donor Floor Technician Relationship Specialty Start Date End Date None, Provider, PCP - General 06/15/22
[2025-05-31 13:52] LABS: Estimated Glomerular Filt Rate > 60
== END 2025-05-31 13:22 | disposition home or self-care (01) ==
PROVIDERS: PCP Family Medicine; Visit Provider Nurse Practitioner Family
DX: R82.5 Elevated urine levels of drugs, medicaments and biological substances (principal)
CPT/HCPCS: 74178; Q9967

== ENCOUNTER 2025-06-02 09:08 | Outpatient (CLI) | payer OTHER, SELFPAY ==
--- OUTSIDE RECORDS SUMMARY | 2025-06-02 09:26 | XMS_ITS | Encounter Summary ---
Author Organization [facility] Health Address [address] [place] [place] [address] Care Team Providers Care Net Programmer Analyst Name Role Phone Nancy Hurst MD Unavailable [phone] Nancy Hurst MD Primary Care Provider [phone] Nancy Hurst MD Primary Care Provider [phone] Nancy Hurst MD Unavailable [phone] Arun Frank MD Unavailable [phone] Nancy Hurst MD Unavailable [phone] Encounter Details Date Type Department Care Team (Late st Contact Info) Description 10/10/2012 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 Gender Identity Not on file Sexual Orientation Not on file documented as of this encounter Plan of Treatment Not on file documented as of this encounter Visit Diagnoses Not on filedocumented in this encounter Additional Health Concerns Infection Onset Date Last Indicated Resolved Time COVID-19 Under Investigation 09/13/2020 09/13/2020 09/15/2020 1:07 PM VARNISH MAKER COVID-19 Confirmed 09/13/2020 09/13/2020 0 4:35 AM VARNISH MAKER COVID-19 Under Investigation 10/14/2022 10/14/2022 10/14/2022 11:40 AM VARNISH MAKER documented as of this encounter Care Teams Net Programmer Analyst Relationship Specialty Start Date End Date Nancy Hurst MD PCP - Pediatrics 08/24/09 12/24/17 Nancy Hurst MD [address] [phone] PCP - General 01/29/10 12/24/17 Nancy Hurst MD PCP - General Pediatrics 12/29/17 Nancy Hurst MD [address] [address] PCP - Attributed-[place] [employer] 06/09/20 01/06/21 [place] [address] [address] PCP - Attributed-[place] [employer] 01/07/21 03/08/21 Nancy Hurst MD [address] [phone] PCP - Attributed-[place] [employer] 03/09/21 06/24/21 documented as of this encounter
--- OUTSIDE RECORDS SUMMARY | 2025-06-02 09:26 | XMS_ITS | Clinical Summary ---
Author Organization [facility] [employer] Address [address] [place] [address] Care Team Providers Care General Handling Supervisor Name Role Phone Nancy Hurst MD Primary Care Provider [phone] Source Comments [facility],non-owned Affiliates and Associated Physician Practices is amultiple site organization consisting of ambulatory clinics and hospital sitesin [place], [place], [place] and [place]. This disclosure is being madepursuant to the Care Everywhere program and may not contain all information available regarding this patient. 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 Gender Identity Not on file Sexual Orientation Not on file Last Filed Vital Signs Vital Sign Reading Time Taken Comments Blood Pressure 112/73 03/26/2022 12:46 PM CDT Pulse 68 03/26/2022 12:46 PM CDT Temperature 36.6 C (97.9 F) 10/14/2022 10:58 AM TONGUE AND GROOVE MACHINE SETTER Respiratory Rate 20 07/05/2021 11:09 AM CDT Oxygen Saturation 98% 07/05/2021 11:09 AM CDT Inhaled Oxygen Concentration - - Weight 72.8 kg (160 lb 6.4 oz) 10/14/2022 10:58 AM TONGUE AND GROOVE MACHINE SETTER Height 172.1 cm (5' 7.75) 08/30/2021 1:31 [...] track( 10:50 AM CDT) No Perla Valente, [facility] Insurance [employer] * Guarantor: MIGUEL HARPER JR Account Type Relation to Patient Date of Phone Billing Address Personal/Family [address] [place] [address] Care Teams General Handling Supervisor Relationship Specialty Start Date End Date Nancy Hurst MD PCP - General Pediatrics 12/29/17
[2025-06-07 11:09] LABS: Creatinine, Ur 24hr 1806 mg/24 hr (1000-2000)
== END 2025-06-02 09:09 | disposition home or self-care (01) ==
PROVIDERS: PCP Family Medicine; Visit Provider Nurse Practitioner Family
DX: R82.5 Elevated urine levels of drugs, medicaments and biological substances (principal); R80.9 Proteinuria, unspecified
CPT/HCPCS: 82384; 82570

== ENCOUNTER 2025-06-15 10:20 | Outpatient (CLI) | payer OTHER, SELFPAY ==
--- OUTSIDE RECORDS SUMMARY | 2025-06-15 10:34 | XMS_ITS | Encounter Summary ---
Author Organization [facility] Health Address [address] [place] [place] [address] Care Team Providers Care Type Copy Examiner Name Role Phone Nancy Hurst MD Unavailable [phone] Nancy Hurst MD Primary Care Provider [phone] Nancy Hurst MD Primary Care Provider [phone] Nancy Hurst MD Unavailable [phone] Arun Frank MD Unavailable [phone] Nancy Hurst MD Unavailable [phone] Encounter Details Date Type Department Care Team (Late st Contact Info) Description 10/10/2012 [facility] Outpatient Visit CG DEFAULT [address] [place] [address] Unknown, Provider Social History Tobacco Use Types Packs/Day Years Used Date Smoking Tobacco: Never Assessed Sex and Gender Information Value Date Recorded Sex Assigned at Not on file 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 Gender Identity Not on file Sexual Orientation Not on file documented as of this encounter Plan of Treatment Not on file documented as of this encounter Visit Diagnoses Not on filedocumented in this encounter Additional Health Concerns Infection Onset Date Last Indicated Resolved Time COVID-19 Under Investigation 09/13/2020 09/13/2020 09/15/2020 1:07 PM MERCERIZING RANGE FEEDER COVID-19 Confirmed 09/13/2020 09/13/2020 0 4:35 AM MERCERIZING RANGE FEEDER COVID-19 Under Investigation 10/14/2022 10/14/2022 10/14/2022 11:40 AM MERCERIZING RANGE FEEDER documented as of this encounter Care Teams Type Copy Examiner Relationship Specialty Start Date End Date Nancy Hurst MD PCP - Pediatrics 08/24/09 12/24/17 Nancy Hurst MD [address] [phone] PCP - General 01/29/10 12/24/17 Nancy Hurst MD PCP - General Pediatrics 12/29/17 Nancy Hurst MD [address] [address] PCP - Attributed-[place] [employer] 06/09/20 01/06/21 [place] [address] [address] PCP - Attributed-[place] [employer] 01/07/21 03/08/21 Nancy Hurst MD [address] [phone] PCP - Attributed-[place] [employer] 03/09/21 06/24/21 documented as of this encounter
--- OUTSIDE RECORDS SUMMARY | 2025-06-15 10:34 | XMS_ITS | Clinical Summary ---
Author Organization [facility] Todaytickets Address [address] [place] [address] Care Team Providers Care Dot Etcher Apprentice Name Role Phone Nancy Hurst MD Primary Care Provider [phone] Source Comments [facility],non-owned Affiliates and Associated Physician Practices is amultiple site organization consisting of ambulatory clinics and hospital sitesin [place] and [place]. 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 ASSISTANT Gender Identity Not on file Sexual Orientation Not on file Last Filed Vital Signs Vital Sign Reading Time Taken Comments Blood Pressure 112/73 03/26/2022 12:46 PM CDT Pulse 68 03/26/2022 12:46 PM CDT Temperature 36.6 C (97.9 F) 10/14/2022 10:58 AM RESEARCH ASSISTANT Respiratory Rate 20 07/05/2021 11:09 AM CDT Oxygen Saturation 98% 07/05/2021 11:09 AM CDT Inhaled Oxygen Concentration - - Weight 72.8 kg (160 lb 6.4 oz) 10/14/2022 10:58 AM RESEARCH ASSISTANT Height 172.1 cm (5' 7.75) 08/30/2021 1:31 [...] track( 10:50 AM CDT) No Perla Valente, [facility] Insurance [employer] * Guarantor: MIGUEL HARPER JR Account Type Relation to Patient Date of Phone Billing Address Personal/Family [address] [facility] [place] [address] Care Teams Dot Etcher Apprentice Relationship Specialty Start Date End Date Nancy Hurst MD PCP - General Pediatrics 12/29/17
[2025-06-23 10:08] LABS: Creatinine, Ur 24hr 1773 mg/24 hr (1000-2000); Dopamine, Ur, 24hr 354 ug/24 hr (0-510); Dopamine, Urine 236 ug/L (Undefined); Epinephrine, U, 24hr 5 ug/24 hr (0-20); Epinephrine, Urine 3 ug/L (Undefined); Norepinephrine, Ur 407 ug/L (Undefined); Norepinephrine,U,24h 611 ug/24 hr (0-135)
== END 2025-06-15 10:21 | disposition home or self-care (01) ==
PROVIDERS: PCP Family Medicine; Visit Provider Nurse Practitioner Family
DX: R82.5 Elevated urine levels of drugs, medicaments and biological substances (principal)
CPT/HCPCS: 82384; 82570